=== PATIENT | female | born 1950 | race Caucasian/White ===

== ENCOUNTER → 2016-08-12 | Outpatient (CLI) | payer MEDICARE | END | disposition home or self-care (01) | LOC: CFH 11:52 | PROVIDERS: ATTEND Nurse Practitioner Primary Care | DX: R94.31 Abnormal electrocardiogram [ECG] [EKG] (principal); R07.89 Other chest pain; E78.2 Mixed hyperlipidemia | CPT/HCPCS: 78452; 93017; 93306; A9502; J2785 ==

== ENCOUNTER 2017-01-27 14:03 | Day surgery (SDC) | payer MEDICARE ==
[2017-01-26 09:25] LABS: ASPARTATE AMINO TRANSFERASE 27 U/L (15-37); BLOOD UREA NITROGEN 20 mg/dL (7-18)
[~2017-01-27] VITALS: Ht 161.3 cm; Wt 63.7 kg
[~2017-01-27 14:03] MED LIST: ALEN70TA5 PO; ASCO10004 PO; CHOL10003 PO; CYAN1TAB29 PO; FENO160T PO; FEXO180T72 PO; FLUT1DIS IH
[2017-01-27 14:37] VITALS: BP 118/75
[2017-01-27] MEDS ORDERED: LIDOCAINE 1%, 2ML ONE (14:44)
[2017-01-27] MEDS ORDERED: LACTATED RINGERS 1,000 ML IV SCH (15:05)
[2017-01-27] MEDS ORDERED: FENTANYL PF 100 MCG/2ML ONE ×2 (15:32→17:31)
[2017-01-27] MEDS ORDERED: MIDAZOLAM 1 MG/ML, 2ML ONE (15:32)
[2017-01-27] MEDS ORDERED: CEFOTETAN PMX 2GM/50ML 50 ML ONE ×2 (16:01)
[2017-01-27] MEDS ORDERED: BUPIVACAINE/PF 0.5% ONE (16:02)
[2017-01-27] MEDS ORDERED: EPINEPHRINE 1 MG/ML, 1ML ONE (16:02)
[2017-01-27] MEDS ORDERED: ROCURONIUM 10 MG/ML ONE (16:07)
[2017-01-27] MEDS ORDERED: PROPOFOL 10 MG/ML, 20ML ONE (16:07)
[2017-01-27] MEDS ORDERED: DEXAMETHASONE 4 MG/ML, 1ML ONE ×2 (16:18)
[2017-01-27] MEDS ORDERED: ONDANSETRON 2MG/ML, 2ML ONE (16:40)
[2017-01-27] MEDS ORDERED: hydrALAzine 20 MG/ML, 1ML IV PRN (17:00)
[2017-01-27] MEDS ORDERED: ONDANSETRON 2MG/ML, 2ML IVPush PRN ×2 (17:00→19:00)
[2017-01-27] MEDS ORDERED: ACETAMINOPHEN 325 MG TABLET PO PRN (17:00)
[2017-01-27] MEDS ORDERED: ALBUTEROL SULFATE 2.5 MG/3 ML NPPB PRN (17:00)
[2017-01-27] MEDS ORDERED: OXYcodone 5 MG/5 ML ORAL.SOL UDC PO PRN (17:00)
[2017-01-27] MEDS ORDERED: HYDROmorphone 1 MG/ML, 1ML IV PRN (17:00)
[2017-01-27] MEDS ORDERED: PROMETHAZINE 25 MG/ML, 1ML IV PRN (17:00)
[2017-01-27] MEDS ORDERED: FENTANYL PF 100 MCG/2ML IV PRN (17:00)
[2017-01-27] MEDS ORDERED: LABETALOL 5MG/ML, 20ML IV PRN (17:00)
[2017-01-27] MEDS ORDERED: MEPERIDINE/PF 25MG/0.5ML IVPush PRN (17:00)
[2017-01-27] MEDS ORDERED: MIDAZOLAM 1 MG/ML, 2ML IV PRN (17:00)
[2017-01-27] MEDS ORDERED: ACETAMINOPHEN 650 MG/20.3 ML UDC ONE (17:31)
[2017-01-27] MEDS ORDERED: OXYcodone 5 MG/5 ML ORAL.SOL UDC ONE (17:31)
[2017-01-27] MEDS ORDERED: MORPHINE SULFATE 4 MG/ML, 1ML IVPush PRN (19:00)
[2017-01-27 20:35] VITALS: BP 116/63
== END 2017-01-27 21:20 | disposition home or self-care (01) ==
LOC: STAR 14:03 → 4NOR 18:05 → STAR 21:20
PROVIDERS: ATTEND Surgery
DX: K80.10 Calculus of gallbladder with chronic cholecystitis without obstruction (principal); J45.909 Unspecified asthma, uncomplicated; Z88.6 Allergy status to analgesic agent; Z82.49 Family history of ischemic heart disease and other diseases of the circulatory system; Z79.899 Other long term (current) drug therapy; K82.8 Other specified diseases of gallbladder
CPT/HCPCS: 36415; 47562; 80053; 82962; 88304; 93005; J0171; J1100; J2250; J2405; J2704; J3010; J3490; J7120; S0074

== ENCOUNTER → 2017-02-04 | Outpatient (CLI) | payer MEDICARE | END | disposition home or self-care (01) | LOC: CFH 10:58 | PROVIDERS: ATTEND Nurse Practitioner Primary Care | DX: Z12.31 Encounter for screening mammogram for malignant neoplasm of breast (principal) | CPT/HCPCS: G0202 ==

== ENCOUNTER → 2017-10-17 | Outpatient (CLI) | payer MEDICARE | LOC: CFH 09:14 | PROVIDERS: ATTEND Nurse Practitioner Primary Care | DX: E03.9 Hypothyroidism, unspecified (principal); E78.2 Mixed hyperlipidemia; R53.83 Other fatigue; F51.01 Primary insomnia; R06.83 Snoring; Z79.899 Other long term (current) drug therapy | CPT/HCPCS: 76536 ==